=== PATIENT | female | born 1965 | race Caucasian/White ===

== ENCOUNTER 2016-07-15 10:49 | Emergency (ER) | payer OTHER ==
[2016-07-15 11:08] VITALS: BP 103/73; PULSE 94; RESP 16; TEMP 99; O2SAT 97
--- NOTE | 2016-07-15 11:37 | UCPHY ---
H & P Patient Type: New Chief Complaint Nursing Narrative: C/o SUAREZ, sinus pressure, sinus pain x 2 weeks. Denies fever. HPI/ROS: CHIEF COMPLAINT: Sinus discomfort HISTORY OF PRESENT ILLNESS: This patient is a 50 year old woman presenting with 2-3 weeks of intermittent sinus tenderness. Symptoms began to worsen two days ago. The sinus discomfort is worse on the right side of her face, aggravated by certain head positions. It is associated with a perceived tooth-ache, however she has no dental pain with chewing or hold/cold liquids. Symptoms are moderate in severity. She denies fever, sinus congestion, rhinorrhea, or post-nasal drip. History is pertinent for previous sinusitis, which usually require antibiotics for treatment. REVIEW OF SYSTEMS: A ten point review of systems was performed and is negative with the exception of the items mentioned in the HPI. Source: Patient Exam Limitations: No limitations - Personal History LMP (Females 10-55): Hysterectomy Current Tetanus/Diphtheria Vaccine: Unsure Current Tetanus Diphtheria and Acellular Pertussis (TDAP): Unsure - Medical/Surgical History Hx Asthma: No Hx Chronic Respiratory Disease: No Hx Diabetes: No Hx Cardiac Disease: No Hx Renal Disease: No Hx Cirrhosis: No Hx Alcoholism: No Hx HIV/AIDS: No Hx Splenectomy or Spleen Trauma: No Other PMH: hysterectomy, L4 herniated disk surgery - Family History Significant Family History: No pertinent family hx - Social History Smoking Status: Current every day smoker Alcohol Use: None Drug Use: None Additional Social History: She is - Physical Exam Exam: General Appearance: Alert. Vital signs reviewed. Eyes: Pupils equal and round, no conjunctival injection, no discharge. Anicteric. ENT, Mouth: Mucous membranes are moist, no oropharyngeal erythema or edema. Right maxillary and frontal sinus tenderness. No dental tenderness to percussion. No untreated dental caries. Gingiva normal. Neck: No lymphadenopathy, supple. Respiratory: Lungs are clear to auscultation; no wheezes, rales, or rhonchi. Cardiovascular: Regular rate and rhythm; no murmur, rub, or gallop. Gastrointestinal: Abdomen is soft and nontender, no masses or organomegaly, bowel sounds normal. Skin: Warm and dry, no rashes on exposed skin, normal color. Back: Nontender to palpation over the thoracolumbar spine. No CVAT. Neurological: Alert and oriented. Moving all four extremities easily and equally. Facial sensation intact to light touch. Psychiatric: Normal affect. Constitutional: Initial Vital Signs Temperature (C) 37.2 C 07/15/16 11:04 Heart Rate 94 07/15/16 11:04 Respiratory Rate 16 07/15/16 11:04 Blood Pressure 103/73 07/15/16 11:04 O2 Sat (%) 97 07/15/16 11:04 O2 Delivery Mode Room Air Allergies/Adverse Reactions: No Known Allergies Allergy (Verified 07/15/16 11:07) Home Medications: Medication Instructions Recorded Amoxicillin/Clavulanate Pot 875 mg PO BID #14 tab 07/15/16 [Augmentin 875 MG TAB (*)] Multivitamin 07/15/16 Medical Decision Making ED Course/Re-evaluation: This patient presents with two weeks of intermittent sinus discomfort, now worsening the last two days. There is right maxillary and frontal sinus tenderness on exam. She has a history of sinusitis previously, which usually requires antibiotics to treat. I have prescribed Augmentin for antibiotic. Discussed Sudafed, ibuprofen, and Tylenol for over the counter pain and symptom relief. She will follow up with her PCP Dr. Arevalo. Differential Diagnosis: DDx includes but is not limited to URI, sinusitis, otitis media, dental infection, pharyngitis. Departure - Departure Disposition: Home, Routine, Self-Care Clinical Impression: Sinusitis Qualifiers: Sinusitis location: maxillary Chronicity: acute Recurrence: not specified as recurrent Qualified Code(s): J01.00 - Acute maxillary sinusitis, unspecified Condition: Good Instructions: Sinusitis (ED) Additional Instructions: Take the Augmentin as prescribed for antibiotics. You may use over the counter decongestants, such a Sudafed, to relieve sinus pressure. Take ibuprofen/ Tylenol as directed for pain relief. Follow up with Dr. Arevalo. Return for worsening symptoms, such as fever, difficulty breathing, or other concerns. Adult Pain & Fever Control: We recommend Acetaminophen (Tylenol) and Ibuprofen (Motrin,Advil) for pain and fever control. When fever is high or pain severe, both drugs can be used at the same time, but at different intervals. Please note the time differences. Your dose is: Acetaminophen 650mg every 4 to 6 hours Ibuprofen 600mg every 6-8 hours with food Note: do not take Acetaminophen with Hydrocodone (Vicodin, Lortab) or Oycodone (Percocet). These medications also contain Acetaminophen. No more than 3000mg of Acetaminophen should be taken in 24 hours (for an adult). Referrals: Gabrielle Arevalo MD [Non Staff Provider (MD)] - As per Instructions Prescriptions: Amoxicillin/Clavulanate Pot [Augmentin 875 MG TAB (*)] 875 mg PO BID #14 tab - PQRS PQRS Measurement: Does not apply Report Scribed for: Mahi Reddy Report Scribed by: Beatris [place] Date of Report: 07/15/16 Time of Report: 12:37 Physician Review and Approval Statement: 07/15/16 11:37 Portions of this note were transcribed by the director of medical review. I, Dr. Mahi Reddy, personally performed the history, physical exam, and medical decision- making; and confirmed the accuracy of the information in the transcribed note.
== END 2016-07-15 12:49 | disposition home or self-care (01) ==
LOC: CED 10:49
DX: J01.00 Acute maxillary sinusitis, unspecified (principal)
CPT/HCPCS: G0463-PO